=== PATIENT | female | born 1955 | race African-American/Black ===

== ENCOUNTER 2018-05-22 08:37 | Inpatient (IN) | payer MEDICAID ==
[~2018-05-22] VITALS: Ht 162.6 cm; Wt 82.1 kg
[~2018-05-22 08:37] MED LIST: ALBUTEROL; ATOR20TA PO; GLUCOMETER; GLUXL10 PO; INSULIN DETEMIR; LANCETS; LEVPEN SQ; LOP25 PO; MONT10TA21 PO; OMEP20CA10 PO; PROAIR HFA; SPIRIVA; TDUR2 PO; THEO100T15 PO; TRAM50TA PO
[2018-05-22] MEDS ORDERED: SODIUM CHLORIDE 0.9% 1,000 ML IV ONE (09:04)
[2018-05-22] MEDS ORDERED: METHYLPREDNISOLONE SOD SUCC 125 MG/2 ML VIAL IV STA (09:04)
[2018-05-22] MEDS ORDERED: LEVOFLOXACIN 750MG PREMIX 150 ML IV ONE (09:15)
[2018-05-22] MEDS ORDERED: LORAZEPAM 2MG/ML CPJ IV ONE (09:15)
[2018-05-22] MEDS ORDERED: IPRATROPIUM/ALBUTEROL 0.5-3(2.5)MG/3ML NEB HHN ONE (09:15)
[2018-05-22] MEDS ORDERED: ASPIRIN 81MG TABLET PO ONE (09:15)
[2018-05-22 09:32] LABS: BASOPHILS % 0.5 % (0.0-2.0); EOSINOPHILS % 0.9 % (0.0-5.0); HEMATOCRIT. 40.6 % (36.0-48.0); HEMOGLOBIN. 13.2 g/dL (12.0-16.0); LYMPHOCYTES % 33.2 % (20.0-50.0); MEAN CORPUSCULAR HEMOGLOBIN 29.4 pg (28.0-32.0); MEAN CORPUSCULAR VOLUME 90.1 fL (81.0-99.0); MEAN PLATELET VOLUME 7.4 fl (7.4-10.4); MONOCYTES % 8.1 % (2.0-8.0); NEUTROPHILS % 57.3 % (40.0-76.0); PLATELET 283 x1000/uL (130-400); RED CELL DISTRIBUTION WIDTH 14.1 % (11.6-14.6)
[2018-05-22 09:33] LABS: CHLORIDE 103 mEq/L (98-107)
[2018-05-22 09:37] LABS: ETHANOL BLOOD < 10 mg/dL; INR 1.1; PARTIAL THROMBOPLASTIN TIME 28.5 sec (23.4-31.0); PROTHROMBIN TIME 11.1 sec (9.1-11.1)
[2018-05-22 09:42] LABS: CREATINE KINASE 730 IU/L (26-192)
[2018-05-22 10:40] LABS: CLARITY URINE CLEAR (CLEAR); COLOR URINE YELLOW (YELLOW); KETONES URINE NEGATIVE (NEGATIVE); LEUKOCYTE ESTERASE URINE NEGATIVE (NEGATIVE); NITRITE URINE NEGATIVE (NEGATIVE); OCCULT BLOOD URINE NEGATIVE (NEGATIVE); PROTEIN URINE NEGATIVE (NEGATIVE); SPECIFIC GRAVITY URINE 1.019 (1.005-1.030)
[2018-05-22 10:52] LABS: *AMPHETAMINES SCREEN URINE NEGATIVE (NEGATIVE)
[2018-05-22 10:53] LABS: *BARBITURATES SCREEN URINE NEGATIVE (NEGATIVE); *BENZODIAZEPINES SCREEN URINE NEGATIVE (NEGATIVE); *COCAINE SCREEN URINE PRESUMTIVE POSITIVE (NEGATIVE); METHADONE URINE SCREEN NEGATIVE (NEGATIVE); OPIATES URINE SCREEN NEGATIVE (NEGATIVE)
[2018-05-22 10:54] LABS: CANNABINOID URINE SCREEN NEGATIVE (NEGATIVE); PHENCYCLIDINE URINE SCREEN NEGATIVE (NEGATIVE)
[2018-05-22] MEDS: DILTIAZEM HCL 30MG TABLET PO SCH ×2 (14:00→16:47)
[2018-05-22 14:09] VITALS: BP 154/93
[2018-05-22 16:00] VITALS: BP 169/118
[2018-05-22] MEDS ORDERED: DEXTROSE 50% WATER 50ML SYRINGE IV PRN (17:30)
[2018-05-22] MEDS: BLOOD SUGAR DIAGNOSTIC STRIP TEST SCH ×2 (17:40→21:16)
[2018-05-22] MEDS: INSULIN LISPRO 100 UNITS/ML SUBCUT SCH ×2 (18:58→21:00)
[2018-05-22 20:00] VITALS: BP 140/80
[2018-05-22] MEDS ORDERED: ONDANSETRON HCL 4MG/2ML INJ IV PRN (20:30)
[2018-05-22] MEDS ORDERED: DOCUSATE SODIUM 100MG CAPSULE PO PRN (20:30)
[2018-05-22] MEDS ORDERED: IPRATROPIUM/ALBUTEROL 0.5-3(2.5)MG/3ML NEB INH PRN (20:30)
[2018-05-22] MEDS ORDERED: LORAZEPAM 0.5MG TABLET PO PRN (20:30)
[2018-05-22] MEDS: ATORVASTATIN CALCIUM 20MG TABLET PO SCH (21:24)
[2018-05-22] MEDS: CHLORDIAZEPOXIDE 25MG CAPSULE PO SCH (21:24)
[2018-05-22] MEDS: INSULIN GLARGINE UD 100 UNITS/ML SYR SUBCUT SCH (22:00)
[2018-05-23] VITALS: BP 161/86
[2018-05-23 06:00] VITALS: BP 156/85
[2018-05-23] MEDS: CHLORDIAZEPOXIDE 25MG CAPSULE PO SCH ×3 (06:16→22:03)
[2018-05-23] MEDS: DILTIAZEM HCL 30MG TABLET PO SCH ×3 (06:17→22:03)
[2018-05-23] MEDS: BLOOD SUGAR DIAGNOSTIC STRIP TEST SCH ×4 (06:17→20:46)
[2018-05-23 07:05] LABS: BASOPHILS % 0.2 % (0.0-2.0); EOSINOPHILS % 0.3 % (0.0-5.0); HEMATOCRIT. 41.5 % (36.0-48.0); HEMOGLOBIN. 13.6 g/dL (12.0-16.0); LYMPHOCYTES % 28.9 % (20.0-50.0); MEAN CORPUSCULAR HEMOGLOBIN 29.6 pg (28.0-32.0); MEAN CORPUSCULAR VOLUME 90.3 fL (81.0-99.0); MEAN PLATELET VOLUME 7.4 fl (7.4-10.4); MONOCYTES % 7.1 % (2.0-8.0); NEUTROPHILS % 63.5 % (40.0-76.0); PLATELET 285 x1000/uL (130-400); RED CELL DISTRIBUTION WIDTH 14.4 % (11.6-14.6)
[2018-05-23 07:12] LABS: CHLORIDE 107 mEq/L (98-107)
[2018-05-23] MEDS: INSULIN LISPRO 100 UNITS/ML SUBCUT SCH ×4 (07:59→20:46)
[2018-05-23 08:00] VITALS: BP 150/87
[2018-05-23] MEDS: MONTELUKAST SODIUM 10MG TABLET PO SCH (09:44)
[2018-05-23] MEDS: OMEPRAZOLE 20MG CAPSULE EXTENDED RELEASE PO SCH (09:45)
[2018-05-23] MEDS: ENOXAPARIN 40MG/0.4ML SYR SUBCUT SCH (09:46)
[2018-05-23] MEDS: GUAIFENESIN-DM 200MG-20MG/10ML UDC PO PRN (09:52)
[2018-05-23] MEDS: INSULIN GLARGINE UD 100 UNITS/ML SYR SUBCUT SCH ×2 (09:56→22:06)
[2018-05-23 12:00] VITALS: BP 159/89
[2018-05-23] MEDS: ACETAMINOPHEN 325MG TABLET PO PRN (12:56)
[2018-05-23 16:00] VITALS: BP 148/92
[2018-05-23] MEDS: THIAMINE HCL 100MG TABLET PO SCH (18:21)
[2018-05-23] MEDS: MULTIVITAMINS,THER W-MINERALS TABLET PO SCH (18:22)
[2018-05-23] MEDS: METHYLPREDNISOLONE SOD SUCC 40 MG/ML VIAL IV SCH (18:22)
[2018-05-23] MEDS: FOLIC ACID 1MG TABLET PO SCH (18:24)
[2018-05-23 20:00] VITALS: BP 153/70
[2018-05-23] MEDS: ATORVASTATIN CALCIUM 20MG TABLET PO SCH (20:50)
[2018-05-23] MEDS: IPRATROPIUM/ALBUTEROL 0.5-3(2.5)MG/3ML NEB HHN SCH (22:10)
[2018-05-24] VITALS: BP 128/75
[2018-05-24] MEDS: METHYLPREDNISOLONE SOD SUCC 40 MG/ML VIAL IV SCH ×3 (01:05→16:11)
[2018-05-24 05:00] VITALS: BP 160/105
[2018-05-24] MEDS: CHLORDIAZEPOXIDE 25MG CAPSULE PO SCH ×3 (06:07→21:21)
[2018-05-24] MEDS: BLOOD SUGAR DIAGNOSTIC STRIP TEST SCH ×4 (06:07→20:17)
[2018-05-24] MEDS: DILTIAZEM HCL 30MG TABLET PO SCH (06:12)
[2018-05-24 06:18] LABS: BASOPHILS % 0.1 % (0.0-2.0); HEMATOCRIT. 45.8 % (36.0-48.0); HEMOGLOBIN. 14.7 g/dL (12.0-16.0); LYMPHOCYTES % 9.1 % (20.0-50.0); MEAN CORPUSCULAR HEMOGLOBIN 29.2 pg (28.0-32.0); MEAN CORPUSCULAR VOLUME 91.2 fL (81.0-99.0); MEAN PLATELET VOLUME 7.5 fl (7.4-10.4); MONOCYTES % 1.4 % (2.0-8.0); NEUTROPHILS % 89.4 % (40.0-76.0); PLATELET 314 x1000/uL (130-400); RED BLOOD CELL COUNT 5.02 mill/uL (4.2-5.4); RED CELL DISTRIBUTION WIDTH 14.3 % (11.6-14.6)
[2018-05-24 06:50] LABS: CHLORIDE 104 mEq/L (98-107)
[2018-05-24 08:00] VITALS: BP 152/90
[2018-05-24] MEDS: FOLIC ACID 1MG TABLET PO SCH (08:25)
[2018-05-24] MEDS: MONTELUKAST SODIUM 10MG TABLET PO SCH (08:25)
[2018-05-24] MEDS: THIAMINE HCL 100MG TABLET PO SCH (08:25)
[2018-05-24] MEDS: MULTIVITAMINS,THER W-MINERALS TABLET PO SCH (08:25)
[2018-05-24] MEDS: OMEPRAZOLE 20MG CAPSULE EXTENDED RELEASE PO SCH (08:25)
[2018-05-24] MEDS: ENOXAPARIN 40MG/0.4ML SYR SUBCUT SCH (08:25)
[2018-05-24] MEDS: INSULIN LISPRO 100 UNITS/ML SUBCUT SCH ×4 (08:25→21:22)
[2018-05-24] MEDS: GUAIFENESIN-DM 200MG-20MG/10ML UDC PO PRN ×2 (08:27→16:11)
[2018-05-24] MEDS: IPRATROPIUM/ALBUTEROL 0.5-3(2.5)MG/3ML NEB HHN SCH ×4 (08:54→20:10)
[2018-05-24] MEDS: INSULIN GLARGINE UD 100 UNITS/ML SYR SUBCUT SCH ×2 (10:25→22:10)
[2018-05-24 12:00] VITALS: BP 158/74
[2018-05-24] MEDS: DILTIAZEM HCL 300MG CAPSULE SR 24HR PO SCH (12:14)
[2018-05-24] MEDS: CARVEDILOL 6.25 MG TABLET PO SCH ×2 (12:14→21:21)
[2018-05-24 16:00] VITALS: BP 150/87
[2018-05-24] MEDS: ACETAMINOPHEN 325MG TABLET PO PRN (16:12)
[2018-05-24 19:32] LABS: HEPATITIS B SURFACE ANTIGEN NEGATIVE
[2018-05-24 20:00] VITALS: BP 127/64
[2018-05-24 20:02] LABS: HEPATITIS A AB IGM NEGATIVE (NEGATIVE)
[2018-05-24] MEDS: ATORVASTATIN CALCIUM 20MG TABLET PO SCH (21:21)
[2018-05-25] VITALS: BP_SYST 148; BP_SYST 168; BP_DIAS 83
[2018-05-25] MEDS: METHYLPREDNISOLONE SOD SUCC 40 MG/ML VIAL IV SCH ×2 (00:40→09:02)
[2018-05-25] MEDS: GUAIFENESIN-DM 200MG-20MG/10ML UDC PO PRN ×3 (00:45→20:41)
[2018-05-25 04:00] VITALS: BP 117/88
[2018-05-25] MEDS: CHLORDIAZEPOXIDE 25MG CAPSULE PO SCH ×2 (05:22→14:59)
[2018-05-25] MEDS: BLOOD SUGAR DIAGNOSTIC STRIP TEST SCH ×4 (05:45→20:22)
[2018-05-25 05:46] LABS: HEMATOCRIT. 44.5 % (36.0-48.0); HEMOGLOBIN. 14.2 g/dL (12.0-16.0); MEAN CORPUSCULAR VOLUME 90.7 fL (81.0-99.0); MEAN PLATELET VOLUME 7.4 fl (7.4-10.4); PLATELET 323 x1000/uL (130-400); RED CELL DISTRIBUTION WIDTH 14.2 % (11.6-14.6)
[2018-05-25 07:37] LABS: CHLORIDE 105 mEq/L (98-107)
[2018-05-25 08:00] VITALS: BP 135/75
[2018-05-25] MEDS: INSULIN LISPRO 100 UNITS/ML SUBCUT SCH ×4 (09:02→20:22)
[2018-05-25] MEDS: MONTELUKAST SODIUM 10MG TABLET PO SCH (09:03)
[2018-05-25] MEDS: OMEPRAZOLE 20MG CAPSULE EXTENDED RELEASE PO SCH (09:03)
[2018-05-25] MEDS: CARVEDILOL 6.25 MG TABLET PO SCH (09:03)
[2018-05-25] MEDS: ENOXAPARIN 40MG/0.4ML SYR SUBCUT SCH (09:03)
[2018-05-25] MEDS: FOLIC ACID 1MG TABLET PO SCH (09:03)
[2018-05-25] MEDS: MULTIVITAMINS,THER W-MINERALS TABLET PO SCH (09:03)
[2018-05-25] MEDS: THIAMINE HCL 100MG TABLET PO SCH (09:03)
[2018-05-25] MEDS: INSULIN GLARGINE UD 100 UNITS/ML SYR SUBCUT SCH ×2 (09:07→20:31)
[2018-05-25] MEDS: DILTIAZEM HCL 300MG CAPSULE SR 24HR PO SCH (09:08)
[2018-05-25] MEDS: IPRATROPIUM/ALBUTEROL 0.5-3(2.5)MG/3ML NEB HHN SCH ×3 (10:39→19:56)
[2018-05-25] MEDS: HYDROCODONE/ACETAMINOPHEN 5/325MG TABLET PO PRN ×2 (11:21→20:43)
[2018-05-25 12:00] VITALS: BP 127/79
[2018-05-25 16:00] VITALS: BP 132/62
[2018-05-25] MEDS ORDERED: PREDNISONE 20MG TABLET PO SCH (18:10)
[2018-05-25] MEDS: CARVEDILOL 12.5MG TABLET PO SCH (20:30)
[2018-05-25] MEDS: ATORVASTATIN CALCIUM 20MG TABLET PO SCH (20:30)
[2018-05-25] MEDS ORDERED: PREDNISONE 20MG TABLET PO NR (20:45)
[2018-05-26] VITALS: BP 135/71
[2018-05-26] MEDS: IPRATROPIUM/ALBUTEROL 0.5-3(2.5)MG/3ML NEB HHN SCH (01:51)
[2018-05-26 05:30] LABS: PLATELET ESTIMATE NORMAL
[2018-05-26] MEDS: BLOOD SUGAR DIAGNOSTIC STRIP TEST SCH ×2 (06:30→12:44)
[2018-05-26 06:35] LABS: CHLORIDE 105 mEq/L (98-107)
[2018-05-26 06:42] LABS: HEMATOCRIT. 43.9 % (36.0-48.0); HEMOGLOBIN. 14.1 g/dL (12.0-16.0); MEAN CORPUSCULAR VOLUME 90.5 fL (81.0-99.0); MEAN PLATELET VOLUME 7.8 fl (7.4-10.4); PLATELET 337 x1000/uL (130-400); RED BLOOD CELL COUNT 4.85 mill/uL (4.2-5.4); RED CELL DISTRIBUTION WIDTH 14.4 % (11.6-14.6)
[2018-05-26 08:00] VITALS: BP 142/91
[2018-05-26] MEDS ORDERED: PREDNISONE 20MG TABLET PO SCH (08:10)
[2018-05-26] MEDS: INSULIN LISPRO 100 UNITS/ML SUBCUT SCH ×2 (08:55→12:45)
[2018-05-26] MEDS: FOLIC ACID 1MG TABLET PO SCH (08:58)
[2018-05-26] MEDS: DILTIAZEM HCL 300MG CAPSULE SR 24HR PO SCH (08:58)
[2018-05-26] MEDS: CARVEDILOL 12.5MG TABLET PO SCH (08:59)
[2018-05-26] MEDS: MONTELUKAST SODIUM 10MG TABLET PO SCH (08:59)
[2018-05-26] MEDS: MULTIVITAMINS,THER W-MINERALS TABLET PO SCH (08:59)
[2018-05-26] MEDS: OMEPRAZOLE 20MG CAPSULE EXTENDED RELEASE PO SCH (08:59)
[2018-05-26] MEDS: THIAMINE HCL 100MG TABLET PO SCH (08:59)
[2018-05-26] MEDS: ENOXAPARIN 40MG/0.4ML SYR SUBCUT SCH (09:00)
[2018-05-26] MEDS ORDERED: CHLORDIAZEPOXIDE 25MG CAPSULE PO NR (09:00)
[2018-05-26] MEDS: INSULIN GLARGINE UD 100 UNITS/ML SYR SUBCUT SCH (10:02)
[2018-05-26] MEDS: GUAIFENESIN-DM 200MG-20MG/10ML UDC PO PRN (10:03)
[2018-05-26] MEDS: HYDROCODONE/ACETAMINOPHEN 5/325MG TABLET PO PRN (10:07)
[2018-05-26 12:00] VITALS: BP 155/86
[2018-05-26 13:41] VITALS: BP 155/86
[2018-05-26 13:41] LABS: PLATELET ESTIMATE NORMAL
[2018-05-26 16:00] VITALS: BP_SYST 142; BP_SYST 155; BP_DIAS 76; BP_DIAS 86
[2018-05-26] MEDS ORDERED: CARVEDILOL 25MG TABLET PO SCH (21:00)
== END 2018-05-26 16:33 | disposition home or self-care (01) | DRG 816 ==
LOC: ER 08:37 → 7WST 10:21 → EDBEDREQ 10:34 → ENRESERV 11:13
PROVIDERS: ADMIT Internal Medicine; ATTEND Internal Medicine
DX: T40.5X1A Poisoning by cocaine, accidental (unintentional), initial encounter (principal); J96.00 Acute respiratory failure, unspecified whether with hypoxia or hypercapnia; R07.9 Chest pain, unspecified; E11.65 Type 2 diabetes mellitus with hyperglycemia; J68.0 Bronchitis and pneumonitis due to chemicals, gases, fumes and vapors; B19.20 Unspecified viral hepatitis C without hepatic coma; E66.9 Obesity, unspecified; F10.20 Alcohol dependence, uncomplicated; I10 Essential (primary) hypertension; Z79.4 Long term (current) use of insulin; Z79.899 Other long term (current) drug therapy; Z91.81 History of falling; Z88.0 Allergy status to penicillin; Z88.8 Allergy status to other drugs, medicaments and biological substances; Z71.3 Dietary counseling and surveillance; Z87.81 Personal history of (healed) traumatic fracture; Z68.31 Body mass index [BMI] 31.0-31.9, adult
CPT/HCPCS: 36415; 71045; 73120; 76700; 80048; 80305; 80320; 82550; 82553; 82962; 83036; 83605; 83880; 84443; 84484; 86705; 86709; 86803; 87340; 93005; 93306; 94640; 96365; 96375; 99285; J1650; J1815; J2060; J2920; J2930; J7030; J7512; J7620; G0480

== ENCOUNTER 2018-12-25 12:53 | Inpatient (IN) | payer MEDICAID ==
[~2018-12-25] VITALS: Ht 167.6 cm; Wt 79.0 kg
[~2018-12-25 12:53] MED LIST changes: +ALBU05 IH; -ALBUTEROL; +AMIT75TA2 PO; -ATOR20TA PO; +CARV6.2548 MT; +CLON0.3T PO; +EPIN0.3P3 IM; +FAMO-135 MT; +FLUT100D IH; +FURO40TA5 MT; -GLUCOMETER; +HYDR-3782 PO; -INSULIN DETEMIR; -LANCETS; -LEVPEN SQ; -LOP25 PO; +LOSA50TA3 PO; +MED4 MT; -OMEP20CA10 PO; +OMEP20CA5 PO; -PROAIR HFA; -SPIRIVA; -TDUR2 PO; -THEO100T15 PO; -TRAM50TA PO
[2018-12-25] MEDS ORDERED: METHYLPREDNISOLONE SOD SUCC 125 MG/2 ML VIAL IV STA (13:19)
[2018-12-25] MEDS ORDERED: ALBUTEROL (0.083%) 2.5MG/3ML NEB HHN STA (13:19)
[2018-12-25 14:17] LABS: BASOPHILS % 0.5 % (0.0-2.0); EOSINOPHILS % 1.3 % (0.0-5.0); HEMATOCRIT. 42.7 % (36.0-48.0); HEMOGLOBIN. 13.7 g/dL (12.0-16.0); LYMPHOCYTES % 26.1 % (20.0-50.0); MEAN CORPUSCULAR HEMOGLOBIN 29.3 pg (28.0-32.0); MEAN PLATELET VOLUME 7.9 fl (7.4-10.4); NEUTROPHILS % 64.1 % (40.0-76.0); PLATELET 226 x1000/uL (130-400); RED BLOOD CELL COUNT 4.69 mill/uL (4.2-5.4); RED CELL DISTRIBUTION WIDTH 15.6 % (11.6-14.6)
[2018-12-25 14:23] LABS: CHLORIDE 107 mEq/L (98-107)
[2018-12-25] MEDS ORDERED: FUROSEMIDE 40MG/4ML VIAL IV ONE (14:45)
[2018-12-25] MEDS ORDERED: ASPIRIN 81MG TABLET PO ONE (14:45)
[2018-12-25] MEDS ORDERED: CLONIDINE 0.1MG TABLET PO PRN (16:00)
[2018-12-25] MEDS ORDERED: IPRATROPIUM/ALBUTEROL 0.5-3(2.5)MG/3ML NEB HHN PRN (16:00)
[2018-12-25] MEDS ORDERED: ONDANSETRON HCL 4MG/2ML INJ IV PRN (16:00)
[2018-12-25 17:47] LABS: *AMPHETAMINES SCREEN URINE NEGATIVE (NEGATIVE); *BARBITURATES SCREEN URINE NEGATIVE (NEGATIVE); *BENZODIAZEPINES SCREEN URINE NEGATIVE (NEGATIVE); *COCAINE SCREEN URINE PRESUMTIVE POSITIVE (NEGATIVE); CANNABINOID URINE SCREEN NEGATIVE (NEGATIVE); OPIATES URINE SCREEN NEGATIVE (NEGATIVE); PHENCYCLIDINE URINE SCREEN NEGATIVE (NEGATIVE)
[2018-12-25 17:48] LABS: METHADONE URINE SCREEN NEGATIVE (NEGATIVE)
[2018-12-25 18:00] VITALS: BP 171/59
[2018-12-25 18:28] VITALS: BP 171/59
[2018-12-25] MEDS: FUROSEMIDE 40MG/4ML VIAL IVP SCH (18:54)
[2018-12-25] MEDS ORDERED: GABA-290 PO (19:38)
[2018-12-25 20:00] VITALS: BP 161/86
[2018-12-25] MEDS: ENOXAPARIN 30MG/0.3ML SYR SUBCUT SCH (21:05)
[2018-12-25] MEDS: AMLODIPINE 5MG TABLET PO SCH (21:05)
[2018-12-25] MEDS: LOSARTAN POTASSIUM 100 MG TABLET PO SCH (21:05)
[2018-12-25] MEDS: METHYLPREDNISOLONE SOD SUCC 40 MG/ML VIAL IV SCH (21:06)
[2018-12-25] MEDS: GABAPENTIN 300MG CAPSULE PO SCH (21:06)
[2018-12-26] VITALS: BP 160/93
[2018-12-26 04:00] VITALS: BP 152/91
[2018-12-26] MEDS: METHYLPREDNISOLONE SOD SUCC 40 MG/ML VIAL IV SCH ×3 (05:03→20:34)
[2018-12-26] MEDS: GABAPENTIN 300MG CAPSULE PO SCH ×3 (05:03→20:35)
[2018-12-26 08:00] VITALS: BP 157/114
[2018-12-26] MEDS: IPRATROPIUM/ALBUTEROL 0.5-3(2.5)MG/3ML NEB HHN SCH ×4 (09:22→23:45)
[2018-12-26] MEDS: FUROSEMIDE 40MG/4ML VIAL IVP SCH ×2 (09:34→17:56)
[2018-12-26] MEDS: LOSARTAN POTASSIUM 100 MG TABLET PO SCH (09:34)
[2018-12-26] MEDS: AMLODIPINE 5MG TABLET PO SCH ×2 (09:34→20:35)
[2018-12-26] MEDS: ENOXAPARIN 30MG/0.3ML SYR SUBCUT SCH (09:35)
[2018-12-26] MEDS: GUAIFENESIN-DM 200MG-20MG/10ML UDC PO PRN ×2 (09:43→17:56)
[2018-12-26 09:47] LABS: BASOPHILS % 0.1 % (0.0-2.0); HEMATOCRIT. 48.4 % (36.0-48.0); HEMOGLOBIN. 15.6 g/dL (12.0-16.0); LYMPHOCYTES % 9.4 % (20.0-50.0); MEAN CORPUSCULAR HEMOGLOBIN 29.4 pg (28.0-32.0); MEAN CORPUSCULAR VOLUME 91.5 fL (81.0-99.0); MEAN PLATELET VOLUME 7.8 fl (7.4-10.4); MONOCYTES % 4.7 % (2.0-8.0); NEUTROPHILS % 85.8 % (40.0-76.0); PLATELET 284 x1000/uL (130-400); RED BLOOD CELL COUNT 5.29 mill/uL (4.2-5.4); RED CELL DISTRIBUTION WIDTH 15.8 % (11.6-14.6)
[2018-12-26 10:01] LABS: CHLORIDE 99 mEq/L (98-107)
[2018-12-26 12:00] VITALS: BP 160/82
[2018-12-26 16:00] VITALS: BP 122/83
[2018-12-26 20:00] VITALS: BP 136/83
[2018-12-26] MEDS: HYDRALAZINE HCL 50MG TABLET PO SCH (20:35)
[2018-12-26] MEDS: GUAIFENESIN 600MG ER TABLET PO SCH (21:00)
[2018-12-27] VITALS (7 sets, daily range): BP systolic 110–165; BP diastolic 68–86
[2018-12-27] MEDS: IPRATROPIUM/ALBUTEROL 0.5-3(2.5)MG/3ML NEB HHN SCH ×5 (04:33→21:27)
[2018-12-27] MEDS: GABAPENTIN 300MG CAPSULE PO SCH ×3 (06:05→21:42)
[2018-12-27] MEDS: METHYLPREDNISOLONE SOD SUCC 40 MG/ML VIAL IV SCH ×2 (06:05→11:58)
[2018-12-27 08:11] LABS: CHLORIDE 99 mEq/L (98-107)
[2018-12-27] MEDS: GUAIFENESIN 600MG ER TABLET PO SCH ×2 (08:54→21:47)
[2018-12-27] MEDS: LOSARTAN POTASSIUM 100 MG TABLET PO SCH (08:54)
[2018-12-27] MEDS: HYDRALAZINE HCL 50MG TABLET PO SCH ×2 (08:54→21:43)
[2018-12-27] MEDS: FUROSEMIDE 40MG/4ML VIAL IVP SCH ×2 (08:55→16:55)
[2018-12-27] MEDS: AMLODIPINE 5MG TABLET PO SCH ×2 (08:55→21:42)
[2018-12-27] MEDS: ENOXAPARIN 40MG/0.4ML SYR SUBCUT SCH (08:56)
[2018-12-27] MEDS ORDERED: TERBUTALINE SULFATE 1MG/ML VIAL SUBCUT NR (16:30)
[2018-12-27] MEDS: ACETAMINOPHEN 325MG TABLET PO PRN (16:44)
[2018-12-27] MEDS: THIAMINE HCL 100MG TABLET PO SCH (16:44)
[2018-12-27] MEDS: FOLIC ACID 1MG TABLET PO SCH (16:44)
[2018-12-27] MEDS: METHYLPREDNISOLONE SOD SUCC 125 MG/2 ML VIAL IV SCH ×2 (16:46→21:43)
[2018-12-28 00:04] VITALS: BP 144/79
[2018-12-28] MEDS: IPRATROPIUM/ALBUTEROL 0.5-3(2.5)MG/3ML NEB HHN SCH ×6 (01:03→21:32)
[2018-12-28 04:45] VITALS: BP 162/89
[2018-12-28] MEDS: METHYLPREDNISOLONE SOD SUCC 125 MG/2 ML VIAL IV SCH ×4 (05:04→23:01)
[2018-12-28] MEDS: GABAPENTIN 300MG CAPSULE PO SCH ×3 (05:04→23:00)
[2018-12-28] MEDS: GUAIFENESIN-DM 200MG-20MG/10ML UDC PO PRN ×2 (05:14→17:12)
[2018-12-28 08:00] VITALS: BP 132/80
[2018-12-28] MEDS: HYDRALAZINE HCL 50MG TABLET PO SCH ×2 (09:24→23:00)
[2018-12-28] MEDS: THIAMINE HCL 100MG TABLET PO SCH (09:24)
[2018-12-28] MEDS: LOSARTAN POTASSIUM 100 MG TABLET PO SCH (09:24)
[2018-12-28] MEDS: FOLIC ACID 1MG TABLET PO SCH (09:24)
[2018-12-28] MEDS: GUAIFENESIN 600MG ER TABLET PO SCH ×2 (09:24→23:01)
[2018-12-28] MEDS: FUROSEMIDE 40MG/4ML VIAL IVP SCH ×2 (09:25→17:12)
[2018-12-28] MEDS: AMLODIPINE 5MG TABLET PO SCH ×2 (09:25→23:00)
[2018-12-28] MEDS: ENOXAPARIN 40MG/0.4ML SYR SUBCUT SCH (09:25)
[2018-12-28 12:00] VITALS: BP 142/78
[2018-12-28 16:00] VITALS: BP 138/80
[2018-12-28] MEDS ORDERED: HYDR-4135 PO (17:50)
[2018-12-28] MEDS ORDERED: LOSA100T3 PO (17:50)
[2018-12-28] MEDS ORDERED: P20 MT (17:50)
[2018-12-28 20:00] VITALS: BP 155/89
[2018-12-29] VITALS: BP 158/87
[2018-12-29] MEDS: IPRATROPIUM/ALBUTEROL 0.5-3(2.5)MG/3ML NEB HHN SCH ×4 (01:23→12:40)
[2018-12-29 04:00] VITALS: BP 156/94
[2018-12-29] MEDS: ACETAMINOPHEN 325MG TABLET PO PRN ×2 (04:18→11:55)
[2018-12-29] MEDS: METHYLPREDNISOLONE SOD SUCC 125 MG/2 ML VIAL IV SCH ×2 (06:42→11:54)
[2018-12-29] MEDS: GABAPENTIN 300MG CAPSULE PO SCH (06:42)
[2018-12-29 08:00] VITALS: BP 170/108
[2018-12-29] MEDS: GUAIFENESIN 600MG ER TABLET PO SCH (09:09)
[2018-12-29] MEDS: AMLODIPINE 5MG TABLET PO SCH (09:09)
[2018-12-29] MEDS: THIAMINE HCL 100MG TABLET PO SCH (09:09)
[2018-12-29] MEDS: LOSARTAN POTASSIUM 100 MG TABLET PO SCH (09:09)
[2018-12-29] MEDS: HYDRALAZINE HCL 50MG TABLET PO SCH (09:10)
[2018-12-29] MEDS: ENOXAPARIN 40MG/0.4ML SYR SUBCUT SCH (09:10)
[2018-12-29] MEDS: FOLIC ACID 1MG TABLET PO SCH (09:10)
[2018-12-29] MEDS: FUROSEMIDE 40MG/4ML VIAL IVP SCH (09:11)
[2018-12-29 09:27] VITALS: BP 170/108
[2018-12-29 09:50] VITALS: BP 170/108
[2018-12-29 12:00] VITALS: BP 116/92
[2018-12-29] MEDS ORDERED: IPRA3AMP9 HHN (12:24)
== END 2018-12-29 15:30 | disposition home or self-care (01) | DRG 816 ==
LOC: ER 13:24 → 6WST 15:19 → ENRESERV 16:57
PROVIDERS: ADMIT Internal Medicine; ATTEND Internal Medicine
DX: T40.5X1A Poisoning by cocaine, accidental (unintentional), initial encounter (principal); J96.00 Acute respiratory failure, unspecified whether with hypoxia or hypercapnia; I50.43 Acute on chronic combined systolic (congestive) and diastolic (congestive) heart failure; E44.0 Moderate protein-calorie malnutrition; J44.1 Chronic obstructive pulmonary disease with (acute) exacerbation; I27.20 Pulmonary hypertension, unspecified; I42.9 Cardiomyopathy, unspecified; I11.0 Hypertensive heart disease with heart failure; E11.9 Type 2 diabetes mellitus without complications; B19.20 Unspecified viral hepatitis C without hepatic coma; J68.0 Bronchitis and pneumonitis due to chemicals, gases, fumes and vapors; J45.909 Unspecified asthma, uncomplicated; I36.1 Nonrheumatic tricuspid (valve) insufficiency; F10.20 Alcohol dependence, uncomplicated; Z88.0 Allergy status to penicillin; Z86.718 Personal history of other venous thrombosis and embolism; Z86.19 Personal history of other infectious and parasitic diseases; Z88.8 Allergy status to other drugs, medicaments and biological substances; Y92.89 Other specified places as the place of occurrence of the external cause; Z79.899 Other long term (current) drug therapy; Z71.51 Drug abuse counseling and surveillance of drug abuser; Z68.28 Body mass index [BMI] 28.0-28.9, adult
CPT/HCPCS: 36415; 71045; 73130; 80048; 80305; 84484; 93005; 93970; 94640; 99285; J1650; J1940; J2920; J2930; J3105; J7611; J7620

== ENCOUNTER 2023-12-31 11:54 | Emergency (ER) | payer MEDICARE, MEDICAID ==
[~2023-12-31] VITALS: Ht 170.2 cm; Wt 90.0 kg
[~2023-12-31 11:54] MED LIST changes: -CLON0.3T PO; +GABA-290 PO; +HYDR50TA39 PO; +IPRA3AMP9 HHN; +LOSA-413 PO; +LOSA-415 PO; -LOSA50TA3 PO; -MED4 MT; +METH4TAB95 MT; +MONT-46 PO; -MONT10TA21 PO; +OMEP20CA14 PO; -OMEP20CA5 PO; +P20 MT
[2023-12-31 12:00] VITALS: O2SAT 98
[2023-12-31 12:14] VITALS: BP 134/70; TEMP 36.94740; O2SAT 98
[2023-12-31] MEDS: METHYLPREDNISOLONE SOD SUCC 125MG/2ML (ACT-O-VIAL) IV ONE (12:23)
[2023-12-31 12:41] LABS: BASOPHILS % 0.1 % (0.0-2.0); EOSINOPHILS % 0.6 % (0.0-5.0); HEMATOCRIT. 41.4 % (36.0-48.0); HEMOGLOBIN. 13.5 g/dL (12.0-16.0); LYMPHOCYTES % 12.2 % (20.0-50.0); MEAN CORPUSCULAR HEMOGLOBIN 30.1 pg (28.0-32.0); MEAN CORPUSCULAR HGB CONC 32.7 g/dL (31.0-37.0); MEAN CORPUSCULAR VOLUME 91.9 fL (81.0-99.0); MONOCYTES % 8.8 % (2.0-8.0); NEUTROPHILS % 78.3 % (40.0-76.0); PLATELET 329 x1000/uL (130-400); RED CELL DISTRIBUTION WIDTH 13.8 % (11.6-14.6); WHITE BLOOD COUNT 10.2 x1000/uL (4.5-11.0)
[2023-12-31 12:50] LABS: CHLORIDE 101 mEq/L (98-107); POTASSIUM 3.9 mEq/L (3.5-5.1); SODIUM 138 mEq/L (136-145)
[2023-12-31 12:51] LABS: CARBON DIOXIDE 31 mEq/L (21-32)
[2023-12-31 12:52] LABS: CALCIUM 9.4 mg/dL (8.7-10.4)
[2023-12-31 12:56] LABS: CREATININE 0.8 mg/dL (0.6-1.0)
[2023-12-31 12:57] LABS: GLUCOSE 162 mg/dL (70-105); PROTHROMBIN TIME 10.9 sec (9.6-11.0); TROPONIN I HIGH SENSITIVITY 18 ng/L (3.0-34); UREA NITROGEN BLOOD 12 mg/dL (9-23)
[2023-12-31 13:05] VITALS: PULSE 93; RESP 20
[2023-12-31] MEDS: IPRATROPIUM/ALBUTEROL 0.5-3(2.5)MG/3ML NEB HHN ONE (13:05)
[2023-12-31] MEDS: ALBUTEROL (0.083%) 2.5MG/3ML NEB HHN ONE (13:05)
[2023-12-31 15:14] VITALS: TEMP 98.7
[2023-12-31] MEDS: METHOCARBAMOL 750MG TABLET PO SCH (15:14)
[2023-12-31] MEDS: ACETAMINOPHEN 325MG TABLET PO ONE (15:14)
[2023-12-31] MEDS ORDERED: P50 MT (16:44)
[2023-12-31] MEDS ORDERED: AZIT250T12 MT (16:44)
[2023-12-31 16:47] LABS: TROPONIN I HIGH SENSITIVITY 17 ng/L (3.0-34)
== END 2023-12-31 17:23 | disposition home or self-care (01) ==
LOC: ER 11:54
DX: J44.1 Chronic obstructive pulmonary disease with (acute) exacerbation (principal); J45.901 Unspecified asthma with (acute) exacerbation; I13.0 Hypertensive heart and chronic kidney disease with heart failure and stage 1 through stage 4 chronic kidney disease, or unspecified chronic kidney disease; E11.22 Type 2 diabetes mellitus with diabetic chronic kidney disease; N18.9 Chronic kidney disease, unspecified; F10.20 Alcohol dependence, uncomplicated; I11.0 Hypertensive heart disease with heart failure; I50.9 Heart failure, unspecified; Z79.899 Other long term (current) drug therapy; Z79.84 Long term (current) use of oral hypoglycemic drugs; Z87.891 Personal history of nicotine dependence; Z88.0 Allergy status to penicillin; Z79.51 Long term (current) use of inhaled steroids; Y90.9 Presence of alcohol in blood, level not specified
CPT/HCPCS: 99285; 96374; 71275; 71045; 80048; 83880; 85025; 85610; 84484; 36415; 94640; 93005; J2919